=== PATIENT | female | born 1970 | race Caucasian/White ===

== ENCOUNTER 2022-05-01 14:40 | Observation (INO) | payer BC, MEDICARE ==
[2022-05-01 15:53] LABS: #Monocytes 1.1 10x3/uL (0.0-1.1); #Neutrophils 11.8 10x3/uL (1.5-8.4); %Basophils 0.1 % (0.0-2.0); %Lymphocytes 13.5 % (18.0-47.0); %Monocytes 7.3 % (0.0-10.0); %Neutrophils 78.7 % (40.0-75.0); Hemoglobin 10.9 g/dL (12.0-15.5); Mean Corpuscular HGB CONC 31.1 g/dL (32.0-36.0); Mean Corpuscular Hemoglobin 29.1 pg (27.0-33.0); Mean Corpuscular Volume 93.6 fl (81.6-98.3); Mean Platelet Volume 9.3 fl (7.4-10.4); Platelet Count 379 10x3/uL (150-450); RBC Distribution Width 18.7 % (11.5-14.5); Red Blood Cell (RBC) Count 3.74 10x6/uL (3.90-5.03)
[2022-05-01 15:58] LABS: ALT (SGPT) 26 U/L (8-55); AST (SGOT) 24 U/L (5-34); Albumin 3.7 g/dL (3.5-5.0); Alkaline Phosphatase 60 U/L (40-110); Anion Gap 12 mmol/L (10-20); BUN (Urea Nitrogen) 18 mg/dL (7.0-18.7); Bilirubin, Total 0.2 mg/dL (0.2-1.2); Calc. Creatinine Clearance 0 mL/min (70-130); Calcium 9.2 mg/dL (7.8-10.44); Carbon Dioxide 27 mmol/L (22-29); Chloride 101 mmol/L (98-107); Estimated GFR 97; Globulin 2.8 g/dL (2.4-3.5); Glucose 115 mg/dL (70-105); Protein, Total 6.5 g/dL (6.0-8.3); Sodium 136 mmol/L (136-145)
[2022-05-01] MEDS ORDERED: HYDROmorphone 0.5 MG/0.5 ML SYRINGE ONE (17:23)
[2022-05-01] MEDS ORDERED: Nicotine 21 MG PATCH ONE (17:25)
[2022-05-01] MEDS ORDERED: HYDROcodone/Acetaminophen 5/325 mg Tablet PO PRN (17:59)
[2022-05-01 18:20] LABS: Lactic Acid 0.7 mmol/L (0.5-2.2)
[2022-05-01] MEDS ORDERED: Aspirin 325 MG TAB PO SCH (18:30)
[2022-05-01 18:31] LABS: Troponin I 0.028 ng/mL (< 0.028)
[2022-05-01] MEDS ORDERED: HYDROmorphone 0.5 MG/0.5 ML SYRINGE SLOW IVP SCH (19:00)
[2022-05-01 19:56] VITALS: BMI 37.8
[2022-05-01] MEDS: HYDROcodone/Acetaminophen 5/325 mg Tablet PO PRN (21:16)
[2022-05-01] MEDS ORDERED: DULoxetine 30 MG CAP PO PRN (21:33)
[2022-05-01] MEDS ORDERED: Ketorolac Tromethamine 30 MG/ML VIAL IVP SCH (22:45)
[2022-05-01 23:05] LABS: Troponin I 0.027 ng/mL (< 0.028)
[2022-05-01] MEDS ORDERED: Gabapentin 300 MG CAP PO SCH (23:45)
[2022-05-01] MEDS ORDERED: DOXEPIN 6 MG PO PRN (23:50)
[2022-05-01] MEDS ORDERED: DULOXETINE 60 MG PO PRN (23:51)
[2022-05-01] MEDS ORDERED: PRAZOSIN 2 MG PO SCH (23:59)
[2022-05-02] MEDS: HYDROcodone/Acetaminophen 5/325 mg Tablet PO PRN ×2 (00:23→05:00)
[2022-05-02] MEDS ORDERED: Ketorolac Tromethamine 30 MG/ML VIAL IVP SCH (04:45)
[2022-05-02 05:10] LABS: SARS-CoV-2 NAA Rapid Test Not Detected (NotDetected)
[2022-05-02 05:13] LABS: #Eosinphils 0.1 10x3/uL (0.0-0.5); #Monocytes 0.9 10x3/uL (0.0-1.1); #Neutrophils 6.6 10x3/uL (1.5-8.4); %Basophils 0.4 % (0.0-2.0); %Eosinophils 0.8 % (0.0-6.0); %Monocytes 7.9 % (0.0-10.0); %Neutrophils 57.7 % (40.0-75.0); Hemoglobin 9.8 g/dL (12.0-15.5); Mean Corpuscular HGB CONC 30.9 g/dL (32.0-36.0); Mean Corpuscular Hemoglobin 28.7 pg (27.0-33.0); Mean Platelet Volume 9.5 fl (7.4-10.4); Platelet Count 331 10x3/uL (150-450); Red Blood Cell (RBC) Count 3.41 10x6/uL (3.90-5.03); White Blood Cell (WBC) Count 11.4 10x3/uL (3.5-10.5)
[2022-05-02 05:24] LABS: Anion Gap 12 mmol/L (10-20); BUN (Urea Nitrogen) 16 mg/dL (7.0-18.7); Calc. Creatinine Clearance 145 mL/min (70-130); Calcium 8.3 mg/dL (7.8-10.44); Carbon Dioxide 24 mmol/L (22-29); Chloride 104 mmol/L (98-107); Estimated GFR 106; Glucose 115 mg/dL (70-105); Potassium 3.5 mmol/L (3.5-5.1); Sodium 136 mmol/L (136-145)
[2022-05-02 06:31] VITALS: BP 92/51; TEMP 98
[2022-05-02] MEDS ORDERED: Electrolyte Replacement Protocol 1 EACH FS PRN (07:45)
[2022-05-02] MEDS ORDERED: Potassium Chloride 20 MEQ TAB PO SCH (08:00)
[2022-05-02 08:07] LABS: Magnesium 2.1 mg/dL (1.6-2.6)
[2022-05-02] MEDS ORDERED: Aspirin 81 mg Enteric Coated Tablet PO SCH (09:00)
[2022-05-02] MEDS ORDERED: Gabapentin 300 MG CAP PO SCH (09:00)
[2022-05-02] MEDS ORDERED: CeleCOXIB 100 MG CAP PO SCH (09:00)
[2022-05-02] MEDS ORDERED: PRAZOSIN 2 MG PO SCH (21:00)
[2022-05-02] MEDS ORDERED: Cyclobenzaprine 10 MG TAB PO SCH (21:00)
[2022-05-02] MEDS ORDERED: Prazosin HCl 1 MG CAP PO SCH (21:00)
== END 2022-05-02 08:05 | disposition left against medical advice (07) ==
LOC: CSHERS 14:40 → CSHTELE 18:14
PROVIDERS: ADMIT Internal Medicine; ATTEND Internal Medicine
DX: R07.89 Other chest pain (principal); D72.829 Elevated white blood cell count, unspecified; R00.0 Tachycardia, unspecified; F17.210 Nicotine dependence, cigarettes, uncomplicated; F42.9 Obsessive-compulsive disorder, unspecified; E66.9 Obesity, unspecified; Z68.27 Body mass index [BMI] 27.0-27.9, adult; E87.20 Acidosis, unspecified; Z20.822 Contact with and (suspected) exposure to COVID-19; Z79.82 Long term (current) use of aspirin; Z79.899 Other long term (current) drug therapy; Z88.5 Allergy status to narcotic agent; Z98.890 Other specified postprocedural states
CPT/HCPCS: 36415; 71045; 80048; 80053; 83605; 83735; 83880; 84484; 85025; 85379; 93005; 96374; 96375; 96376; G0378; J1170; J1885; U0002